=== PATIENT | female | born 1950 | race Caucasian/White ===

== ENCOUNTER → 2024-03-20 06:26 | Day surgery (SDC) | payer OTHER, SELFPAY | LOC: GI 06:26 | PROVIDERS: ATTENDING PHYSICIAN Internal Medicine Gastroenterology | DX: R12 Heartburn (principal); K44.9 Diaphragmatic hernia without obstruction or gangrene; K31.89 Other diseases of stomach and duodenum; K31.7 Polyp of stomach and duodenum; Z13.810 Encounter for screening for upper gastrointestinal disorder; K29.50 Unspecified chronic gastritis without bleeding; B96.81 Helicobacter pylori [H. pylori] as the cause of diseases classified elsewhere; K31.A19 Gastric intestinal metaplasia without dysplasia, unspecified site | CPT/HCPCS: 43239; 88305; 88342 ==

== ENCOUNTER → 2024-04-10 09:12 | Outpatient (REF) | payer OTHER, SELFPAY | LOC: HWWDC 09:12 | PROVIDERS: ATTENDING PHYSICIAN Physician Assistant Medical | DX: Z12.31 Encounter for screening mammogram for malignant neoplasm of breast (principal) | CPT/HCPCS: 77063; 77067 ==

== ENCOUNTER → 2024-07-11 10:53 | Outpatient (REF) | payer OTHER, SELFPAY | LOC: WDC 10:53 | PROVIDERS: ATTENDING PHYSICIAN Physician Assistant Medical | DX: R92.2 Inconclusive mammogram (principal) | CPT/HCPCS: 76641 ==

== ENCOUNTER 2024-12-25 06:20 | Day surgery (SDC) | payer OTHER, SELFPAY | END 2024-12-25 14:46 | disposition home or self-care (01) | LOC: GI 06:20 | PROVIDERS: ATTENDING PHYSICIAN Internal Medicine Gastroenterology | DX: Z12.11 Encounter for screening for malignant neoplasm of colon (principal); K64.8 Other hemorrhoids; K57.30 Diverticulosis of large intestine without perforation or abscess without bleeding; D12.2 Benign neoplasm of ascending colon; D12.0 Benign neoplasm of cecum; Z80.0 Family history of malignant neoplasm of digestive organs; Z86.0100 Personal history of colon polyps, unspecified | CPT/HCPCS: 45380; 88305 ==

== ENCOUNTER 2025-03-18 11:22 | Emergency (ER) | payer OTHER, SELFPAY ==
[2025-03-18 11:33] VITALS: BP 128/75
[2025-03-18 12:37] VITALS: BMI 29.0
--- NOTE | 2025-03-18 13:08 | ED.GENMED ---
History of Present Illness
General
Chief Complaint: DVT/Possible Blood Clot
Source: patient
Exam Limitations: none
Time Seen by Provider: 03/18/25 12:40
History of Present Illness
History of Present Illness:
75-year-old female presents complaining left lower leg pain for the past 3 days. The pain is on the lateral and anterior aspect of the leg. This is just below the knee. No known injury however she does note kneeling while gardening several days
ago. She also notes that she has been walking quite a bit over the past month. No chest pain or shortness of breath. She has a history of reflux and hypothyroidism. No prior history of DVT or PE.
Past History
Past History
ED Past Medical History: Psychiatric (anxiety)
ED Past Surgical History: None
Social History
Tobacco: Non-smoker
Alcohol: None
Drug: None
Personal:
Living: with family
Phy Exam
Physical Exam
Physical Exam:
General: Well appearing female NAD
Vascular: 2+ DP pulse left foot. Compartments are soft
Ext: no edema left leg.
Skin: Warm, no rash or erythema.
Course
Orders/Labs/Results
Orders:
Orders
03/18/25 11:42
US Periph Venous LOWER Ext LT Urgent
Comment:
Reason For Exam: calf pain
Vital Signs
Initial and Last Documented VS:
Initial Vital Signs
Temp Pulse BP Pulse Ox
98.6 F 75 128/75 97
03/18/25 11:33 03/18/25 11:33 03/18/25 11:33 03/18/25 11:33
Last Documented Vital Signs
Temp Pulse BP Pulse Ox
98.6 F 75 128/75 97
03/18/25 11:33 03/18/25 11:33 03/18/25 11:33 03/18/25 13:12
MDM/Problems Addressed
Differential Diagnosis Includes:
Left leg pain. Consider DVT versus tendinitis versus bursitis. There is no skin changes to suggest cellulitis.
Ultrasound pending
*Pulse Oximetry
SaO2: 97
Oxygen Mode of Delivery: Room air
Patient hypoxic: no
*Critical Care Note
Total Time (30-74mins, 75-104mins- exclusive of procedures): Not Applicable
Update Note
Update Note:
Ultrasound negative for DVT. Patient reassured. Suspect musculoskeletal type pain. Recommended continued anti-inflammatories. Stable for discharge
ED Attending Note
-
Portions of this chart may have been created with voice recognition software.� Occasional wrong word or��sound alike� substitutions may have occurred due to the inherent limitations of voice recognition software.
Discharge Plan
Departure
Patient Disposition: Home (Routine Discharge)
Date of Disposition: 03/18/25
Time of Disposition: 13:29
Patient with high blood pressure during this ER visit?: No
Discharge Problem:
Leg pain
Instructions: Muscle, joint, and bone pain - Discharge instructions
Prescriptions:
No Action
sertraline 100 MG tablet
100 mg PO DAILY
lorazepam 0.5 MG tablet
0.5 mg PO PRN PRN (Reason: anxiety)
levothyroxine 50 MCG tablet
50 mcg PO DAILY
lorazepam 0.5 MG tablet
0.5 mg PO Q6HPRN PRN (Reason: anxiety) Qty: 8 0RF
Referrals:
Isabel Hardin PA [Family Provider, Family Practice]
Activity Restrictions/Additional Instructions:
As discussed, there is no signs of DVT or blood clot on your exam. This is likely musculoskeletal in nature. You may take ibuprofen or other anti-inflammatories if needed for pain. Return if worse otherwise follow-up with your doctor
Interventions
Interventions:
*Risk Screen - Suicide Last Done: 03/18/25 11:40
*General Assessment Last Done: 03/18/25 12:37
*Neglect/Abuse Screening Last Done: 03/18/25 12:37
*ED- Fall Risk Assessment Last Done: 03/18/25 12:37
*ED COVID-19 Vaccine History Last Done: 03/18/25 12:41
ED- Cardiac Assessment Last Done: 03/18/25 12:37
ED- Pulmonary Assessment Last Done: 03/18/25 12:37
ED-Peripheral Vascular Assessment Last Done: 03/18/25 12:37
ED-Skin Assessment Last Done: 03/18/25 12:37
Discharge Date and Time
Print Language: TANZANIAN
[2025-03-18 14:24] VITALS: BP 128/84
== END 2025-03-18 14:00 | disposition home or self-care (01) ==
LOC: EMR 11:22
PROVIDERS: EMERGENCY PHYSICIAN Emergency Medicine; FAMILY PHYSICIAN Physician Assistant Medical
DX: M79.662 Pain in left lower leg (principal); E03.9 Hypothyroidism, unspecified
CPT/HCPCS: 99284; 93971

== ENCOUNTER → 2025-04-04 09:06 | Outpatient (REF) | payer SELFPAY | LOC: HWRAD 09:06 | PROVIDERS: ATTENDING PHYSICIAN Student in an Organized Health Care Education/Training Program; FAMILY PHYSICIAN Physician Assistant Medical | DX: E78.2 Mixed hyperlipidemia (principal) | CPT/HCPCS: 75571 ==

== ENCOUNTER → 2025-04-12 08:11 | Outpatient (REF) | payer OTHER, SELFPAY | LOC: HWWDC 08:11 | PROVIDERS: ATTENDING PHYSICIAN Physician Assistant Medical | DX: Z12.31 Encounter for screening mammogram for malignant neoplasm of breast (principal) | CPT/HCPCS: 77063; 77067 ==

== ENCOUNTER → 2025-07-30 13:24 | Outpatient (REF) | payer OTHER, SELFPAY | LOC: PAVMRI 13:24 | PROVIDERS: ATTENDING PHYSICIAN Specialist; FAMILY PHYSICIAN Physician Assistant Medical | DX: M54.16 Radiculopathy, lumbar region (principal) | CPT/HCPCS: 72148 ==